=== PATIENT | female | born 1930 | race Caucasian/White ===

== ENCOUNTER 2021-05-26 21:00 | Inpatient (IN) | payer MEDICARE, OTHER ==
[~2021-05-26] VITALS: Ht 154.9 cm; Wt 52.6 kg
--- NOTE | 2021-05-26 21:00 | NUR ---
patient BIB [facility] from [facility]. Patient was becoming aggressive, hitting staff, and screaming at facility. Patient is calm and cooperative upon arrival to ER
[2021-05-26 21:39] LABS: CARBON DIOXIDE 29 mmol/L (21-32); CHLORIDE 101 mmol/L (98-107); CREATININE 0.9 mg/dL (0.6-1.3); GLUCOSE 163 mg/dL (74-106); POTASSIUM 4.5 mmol/L (3.5-5.1); UREA NITROGEN, BLOOD 34 mg/dL (7-18)
[2021-05-26 21:41] LABS: HEMATOCRIT 29.9 % (31.2-41.9); MEAN CORPUSCULAR HEMOGLOBIN 30.1 uug (24.7-32.8); MEAN CORPUSCULAR VOLUME 89.9 fL (75.5-95.3); PLATELET COUNT (AUTO) 230 K/uL (179-408)
[2021-05-26 21:44] LABS: ALANINE AMINOTRANSFERASE 26 U/L (14-59); ALKALINE PHOSPHATASE 52 U/L (50-136); ASPARTATE AMINOTRANSFERASE 13 U/L (15-37); BILIRUBIN,DIRECT 0.1 mg/dL (0.0-0.2); BILIRUBIN,TOTAL 0.3 mg/dL (0.2-1.0)
[2021-05-26] MEDS ORDERED: IV NS 1000 ML 1,000 ML IV ONE ×2 (22:00)
[2021-05-26 22:09] LABS: MAGNESIUM 2.1 mg/dL (1.8-2.4)
--- NOTE | 2021-05-26 22:31 | NUR ---
called payroll master Harman and both numbers are not working and was not able to leave a voice message. Also called payroll master Jessica no answer and was not able to leave voice message. Will attempt to call prefabricated houses trimmer
--- NOTE | 2021-05-26 22:39 | NUR ---
called pari mutuel ticket seller Meredith
--- NOTE | 2021-05-26 22:57 | NUR ---
[phone] - son Patient's son left and gave his phone number. Will update
[2021-05-26] MEDS ORDERED: QUET25TA PO (23:28)
[2021-05-26] MEDS ORDERED: LOSA50TA39 PO (23:33)
[2021-05-27] MEDS ORDERED: DOCU-141 PO (00:30)
[2021-05-27] MEDS ORDERED: CARV12.52 PO (00:30)
[2021-05-27] MEDS ORDERED: ACET-2154 PO (00:32)
[2021-05-27 00:44] LABS: *BILIRUBIN,URIN NEGATIVE (NEGATIVE); *BLOOD, URINE TRACE (NEGATIVE); *CLARITY,URINE CLEAR (CLEAR); *COLOR,URINE YELLOW (YELLOW); *KETONES,URINE NEGATIVE (NEGATIVE); *UROBILINOGEN,URINE 0.2 E.U./dl (NORMAL); LEUKOCYTE ESTERASE ,URINE TRACE (NEGATIVE); NITRITE, URINE NEGATIVE (NEGATIVE); UGLUCOSE NEGATIVE (NEGATIVE)
[2021-05-27 00:55] LABS: BACTERIA,URINE FEW /HPF (NONE SEEN); RBC,URINE 0-3 /HPF (0-3); SQUAMOUS EPITHELIAL CELL,UR FEW /HPF (NONE SEEN)
[2021-05-27] MEDS ORDERED: ESCI-9 PO (00:56)
[2021-05-27] MEDS ORDERED: LINA5TAB PO (00:56)
[2021-05-27] MEDS ORDERED: PYRI25TA3 PO (00:56)
[2021-05-27] MEDS ORDERED: LINA290C PO (00:56)
[2021-05-27] MEDS ORDERED: BISA10SU61 RC (00:59)
[2021-05-27] MEDS ORDERED: METF-494 PO (00:59)
[2021-05-27] MEDS ORDERED: PRAV20TA4 PO (00:59)
[2021-05-27] MEDS ORDERED: GABA-532 PO (00:59)
[2021-05-27] MEDS ORDERED: LACT10SO3 PO (00:59)
[2021-05-27] MEDS ORDERED: SUVO10TA PO (00:59)
--- NOTE | 2021-05-27 01:30 | NUR ---
tried calling [facility] to give report. They said call back after 30 mins
--- NOTE | 2021-05-27 02:23 | NUR ---
report given to Luis Daniel
--- NOTE | 2021-05-27 03:10 | NUR ---
Pt. admitted to [facility] under care of Dr. Maurer Belongs List completed
[2021-05-27] MEDS ORDERED: MAG HYDROX/AL HYDROX/SIMETH 30 ML LIQUID UDC PO PRN (03:45)
--- NOTE | 2021-05-27 05:35 | NUR ---
GPS: PT RECEIVED FROM ER, REPORTED BY ALEX LACY. PT CAME FROM [facility] AND ON 515 WITH PROBABLE CAUSE OF GRAVE DISABILITY AND DANGER TO OTHERS. PER 5150, PT WAS AGGRESSIVE TOWARDS STAFF AND HAVING BIZAARE BEHAVIOR, WAS HITTING STAFF AND RESIDENTS, YELLING AND SCREAMING AND NOT SLEEPING FOR FEW DAYS. UPON FACE TO FACE, PT WAS ALERT AND ORIENTED X2, CONFUSED AND SOMEWHAT PARANOID. ASSISTED TO THE BATHROOM. 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 PT FEELS ANXIOUS AT FIRST AND OFFERED MEDICATION BUT REFUSED. PT ABLE TO UNDERSTAND [place] AND ABLE TO MAKE NEEDS KNOWN. REFUSED SNACKS. REFUSED TO SIGN ALL PAPERS AND WOULD LIKE TO TAKE A REST. HANDED OUT PT RIGHT HANDBOOK AND FOLDER AND THE HOLD AND ADVISEMENT PAPER ENCLOSED. WILL NOTIFY DR PAYAN AND PT'S DAUGHTER IN THE MORNING.
[2021-05-27 07:30] VITALS: BP 139/56
[2021-05-27] MEDS: QUETIAPINE FUMARATE 25 MG TABLET PO SCH ×2 (09:27→17:08)
[2021-05-27] MEDS: SERTRALINE HCL 50 MG TABLET PO SCH (09:27)
[2021-05-27] MEDS: GABAPENTIN 100 MG CAPSULE PO SCH ×3 (09:27→17:07)
--- NOTE | 2021-05-27 11:56 | NUR ---
Patient is in her room sitting on her bed I introduce myself to her and asked if she she would like to join activities? pt stated " I am dizzy so I rather stay in my room" I offer her some water but she declined Pt was calm during our conversation, during assessment noted pt's left hand swollen due to mastectomy of left breast instruct staff not to take any v/s, blood draw on pt's left hand pt able to feed herself and needs stand by assist when going to the bathroom, Pt will be given a shower later today.
[2021-05-27] MEDS: CEphaleXIN 500 MG CAPSULE PO SCH ×2 (13:11→20:26)
[2021-05-27] MEDS ORDERED: ACETAMINOPHEN 325 MG TABLET-SA PATIENTS-PAIN ONLY PO PRN (14:30)
[2021-05-27] MEDS ORDERED: METF-440 PO (14:37)
--- NOTE | 2021-05-27 14:41 | NUR ---
GOLDIE Initial Discharge Note: Pt is an 89 year old admitted to [facility] on a 5150 hold from [facility] ([phone]) for a danger to others and gravely disabled adult. Mima (health director and admissions at the facility) stated that pt has a bed hold and is welcome back upon discharge. Pt's daughter, Nogc ([phone]) stated that pt will return to her current facility upon discharge. Ngoc stated her sister is the pt's DPOA and she will bring the paperwork to U. Ngoc and her sister will be involved. GOLDIE will continue to work with pt, family and MD to ensure a safe and proper discharge plan for the pt.
--- NOTE | 2021-05-27 14:46 | NUR ---
Firearms Report: Buttonholer completed and submitted a DOJ firearms report for 5150 a danger to others and grave disability certifications. A copy of report has been placed in patient chart.
[2021-05-27 15:40] VITALS: BP 110/50
[2021-05-27] MEDS: DOCUSATE SODIUM 100 MG CAPSULE PO SCH (17:07)
[2021-05-27] MEDS: METFORMIN HCL 500 MG TABLET PO SCH (17:44)
[2021-05-27] MEDS: CARVEDILOL 12.5 MG TABLET PO SCH (17:45)
[2021-05-27 20:11] VITALS: BP 90/55
[2021-05-27] MEDS: ATORVASTATIN 10 MG TABLET PO SCH (20:26)
[2021-05-28] MEDS: TEMAZEPAM 7.5 MG CAPSULE PO PRN (00:06)
--- NOTE | 2021-05-28 06:09 | NUR ---
NSG: Remain calm and cooperative with meds and care. slept 7.15 hrs through the night. ambulates with fww. no [id number] noted at this time. continue plan of care.
[2021-05-28] MEDS: METFORMIN HCL 500 MG TABLET PO SCH ×2 (08:35→17:05)
[2021-05-28] MEDS: SERTRALINE HCL 50 MG TABLET PO SCH (08:36)
[2021-05-28] MEDS: DOCUSATE SODIUM 100 MG CAPSULE PO SCH ×2 (08:39→16:49)
[2021-05-28] MEDS: CEphaleXIN 500 MG CAPSULE PO SCH ×2 (08:39→16:49)
[2021-05-28] MEDS: QUETIAPINE FUMARATE 25 MG TABLET PO SCH ×2 (08:39→16:49)
[2021-05-28] MEDS: GABAPENTIN 100 MG CAPSULE PO SCH ×3 (08:40→16:49)
[2021-05-28] MEDS: CARVEDILOL 12.5 MG TABLET PO SCH ×2 (08:45→17:06)
[2021-05-28] MEDS: LOSARTAN POTASSIUM 50 MG TABLET PO SCH (08:46)
[2021-05-28] MEDS: LINAGLIPTIN 5 MG TABLET PO SCH (08:48)
[2021-05-28] MEDS ORDERED: Linaclotide (Linzess) 290 MCG) PO SCH (09:00)
[2021-05-28 09:18] VITALS: BP 117/46
--- NOTE | 2021-05-28 10:18 | NUR ---
GPS: Nursing Notes: Request [facility]: Staff requested a 5250 certification review hearing through [facility] portal, a copy of 5250 delivered to patient, explained 5250, but she needs reinforcement with teaching, believes that the staff is trying to kill her, overly disruptive shouting, continue to monitor for safety, continue with treatment plan.
[2021-05-28] MEDS: LORAZEPAM 0.5 MG TABLET PO PRN ×2 (12:15→20:32)
[2021-05-28 16:04] VITALS: BP 100/36
--- NOTE | 2021-05-28 18:18 | NUR ---
Received Patient in room sleeping, no apparent distress noted. Greeted patient and was pleasant. Patient compliant with medication and diet. Patient agrees to shower. Patient tend to be angry d/t her hallucinations. Patient keeps on stating "I go to hell", "you go to hell". Fixated on counting people in her room and gets aggressive at times. Patient kept safe all the times. needs met and attended.
[2021-05-28 20:00] VITALS: BP 138/90
[2021-05-28] MEDS: ATORVASTATIN 10 MG TABLET PO SCH (20:32)
--- NOTE | 2021-05-28 20:36 | NUR ---
patient is crying loud stated i am sad. ativan 0.5 mg po given.
--- NOTE | 2021-05-28 21:36 | NUR ---
GPS: Remain calm and cooperative with meds and care. assisted with adl's. patient remain confused. resting on bed comfortably.
--- NOTE | 2021-05-29 06:34 | NUR ---
slept 6.45 hrs through the night.
[2021-05-29 07:30] VITALS: BP 104/62
[2021-05-29] MEDS: CARVEDILOL 12.5 MG TABLET PO SCH ×2 (08:00→16:16)
[2021-05-29] MEDS: LINAGLIPTIN 5 MG TABLET PO SCH (08:32)
[2021-05-29] MEDS: GABAPENTIN 100 MG CAPSULE PO SCH ×4 (08:32→16:16)
[2021-05-29] MEDS: DOCUSATE SODIUM 100 MG CAPSULE PO SCH ×3 (08:32→16:15)
[2021-05-29] MEDS: QUETIAPINE FUMARATE 25 MG TABLET PO SCH ×3 (08:32→16:16)
[2021-05-29] MEDS: CEphaleXIN 500 MG CAPSULE PO SCH ×3 (08:32→16:16)
[2021-05-29] MEDS: SERTRALINE HCL 50 MG TABLET PO SCH (08:33)
[2021-05-29] MEDS: LOSARTAN POTASSIUM 50 MG TABLET PO SCH (08:33)
[2021-05-29] MEDS: METFORMIN HCL 500 MG TABLET PO SCH ×2 (08:33→16:17)
[2021-05-29 15:14] VITALS: BP 159/49
--- NOTE | 2021-05-29 15:51 | NUR ---
patient is alert and oriented x3, paranoia and delusional refusing all medication ,refused all nursing care,supervision for restroom used. patient was void on the floor refused got help from nurses,patient able to ambulating to restroom and stay in toilet for over hour.will continue close monitoring.
[2021-05-29] MEDS: LORAZEPAM 0.5 MG TABLET PO PRN ×2 (17:26→23:25)
[2021-05-29 20:00] VITALS: BP 132/48
[2021-05-29] MEDS: ATORVASTATIN 10 MG TABLET PO SCH (21:16)
[2021-05-29] MEDS: TEMAZEPAM 7.5 MG CAPSULE PO PRN (21:17)
[2021-05-29] MEDS: MAGNESIUM HYDROXIDE 30 ML LIQUID UDC PO PRN (23:33)
[2021-05-30] MEDS: ACETAMINOPHEN 325 MG TABLET PO PRN (01:15)
--- NOTE | 2021-05-30 06:12 | NUR ---
Received, up in marek chair, confused, but compliant with care. PRN Restoril and Ativan were given at bedtime. She became more confused, as the night wore on, talking to self, and refusing to stay in bed, even after being assisted there several times. She did not sleep, all night. She c/o being constipated, so PRN Milk of Magnesia was given. As of this morning, there is still no result. Currently up in marek chair. No distress, noted.
[2021-05-30 07:30] VITALS: BP 166/59
[2021-05-30] MEDS: METFORMIN HCL 500 MG TABLET PO SCH ×2 (08:00→17:51)
[2021-05-30] MEDS: CARVEDILOL 12.5 MG TABLET PO SCH ×2 (08:00→17:50)
[2021-05-30] MEDS: CEphaleXIN 500 MG CAPSULE PO SCH ×2 (08:56→17:50)
[2021-05-30] MEDS: LOSARTAN POTASSIUM 50 MG TABLET PO SCH (08:56)
[2021-05-30] MEDS: DOCUSATE SODIUM 100 MG CAPSULE PO SCH ×2 (08:56→17:50)
[2021-05-30] MEDS: SERTRALINE HCL 50 MG TABLET PO SCH (08:57)
[2021-05-30] MEDS: QUETIAPINE FUMARATE 25 MG TABLET PO SCH ×2 (08:57→17:51)
[2021-05-30] MEDS: LINAGLIPTIN 5 MG TABLET PO SCH (08:57)
[2021-05-30] MEDS: GABAPENTIN 100 MG CAPSULE PO SCH ×3 (08:57→17:51)
[2021-05-30] MEDS ORDERED: OLANZAPINE 10 MG VIAL IM ONE (09:45)
--- NOTE | 2021-05-30 09:50 | NUR ---
Patient became agitated, aggressive, striking at staff, combative, threw medications at nurse. Dr. Cowan ordered Zyprexa 5 mg IM. Three people to administer medication, no force needed. Fall and safety precautions implemented.
--- NOTE | 2021-05-30 15:02 | NUR ---
Received patient awake in the hallway. A/O X 2 to person, place. Pt. is uncooperative, cursing, yelling, throwing food on the floor and at the nurse, and refusing medications, agitated, combative, striking at staff. Pt. ambulates with assistance. Continent of bladder and bowel. Reassurance given. Fall and safety precautions implemented.
[2021-05-30 15:13] VITALS: BP 127/44
--- NOTE | 2021-05-30 15:22 | NUR ---
GPS: Nursing Notes: Farsi Billing And Quality Technician For [facility]: Staff called [address] to request Farsi area development manager because patient is regressing to her confederated yakama language, spoke with [address] manager contact - Lauren , continue to monitor for safety, continue with treatment plan.
[2021-05-30] MEDS: LORAZEPAM 0.5 MG TABLET PO PRN ×2 (15:43→22:09)
--- NOTE | 2021-05-30 16:26 | NUR ---
GOLDIE Family Contact: GOLDIE spoke with Ngoc ([phone]) in person during visitation hours regarding pt's discharge plan. Ngoc delivered pt's DPOA paperwork to GOLDIE and GOLDIE placed a copy of the DPOA paperwork in the pt's chart. Ngoc was agreeable to SNF options recommended by MD and GOLDIE upon discharge. GOLDIE will continue to work with pt, family and MD to ensure a safe and proper discharge plan. GOLDIE informed Ngoc she will update family with discharge updates provided by MD as needed. Pt's family is aware and agreeable with the discharge plan.
[2021-05-30] MEDS: GLUCERNA SHAKE VANILLA 237 ML CAN PO SCH (17:52)
[2021-05-30] MEDS: ATORVASTATIN 10 MG TABLET PO SCH (20:04)
[2021-05-30 20:11] VITALS: BP 135/58
[2021-05-30] MEDS: TEMAZEPAM 7.5 MG CAPSULE PO PRN (20:13)
[2021-05-31] MEDS: MAGNESIUM HYDROXIDE 30 ML LIQUID UDC PO PRN (06:52)
[2021-05-31 07:30] VITALS: BP 133/49
[2021-05-31] MEDS: SERTRALINE HCL 50 MG TABLET PO SCH (08:25)
[2021-05-31] MEDS: CEphaleXIN 500 MG CAPSULE PO SCH ×2 (08:25→17:23)
[2021-05-31] MEDS: QUETIAPINE FUMARATE 25 MG TABLET PO SCH ×2 (08:25→17:23)
[2021-05-31] MEDS: LOSARTAN POTASSIUM 50 MG TABLET PO SCH (08:31)
[2021-05-31] MEDS: CARVEDILOL 12.5 MG TABLET PO SCH ×2 (08:31→17:23)
[2021-05-31] MEDS: METFORMIN HCL 500 MG TABLET PO SCH ×2 (08:32→17:23)
[2021-05-31] MEDS: GABAPENTIN 100 MG CAPSULE PO SCH ×3 (08:32→17:23)
[2021-05-31] MEDS: DOCUSATE SODIUM 100 MG CAPSULE PO SCH ×2 (08:32→17:23)
[2021-05-31] MEDS: LINAGLIPTIN 5 MG TABLET PO SCH (09:00)
[2021-05-31] MEDS: GLUCERNA SHAKE VANILLA 237 ML CAN PO SCH ×2 (09:00→17:23)
--- NOTE | 2021-05-31 13:07 | NUR ---
GPS: PT ASSISTED WITH TOILETING AND PT NOTED CONSTIPATED. PT WAS GIVEN MILK OF MAGNESIA THIS MORNING. PT GETS AGITATED AND SCREAMS AND YELLS WHILE HELPING PT TO THE BATHROOM. WILL ENCOURAGE PRUNE JUICE AND WILL INTRODUCE BISACODYL SUPP.
[2021-05-31] MEDS: BISACODYL 10 MG SUPP.RECT RC PRN (14:15)
[2021-05-31] MEDS ORDERED: FLEET ENEMA 133 ML BOTTLE RC ONE (14:15)
[2021-05-31 16:05] VITALS: BP 125/50
--- NOTE | 2021-05-31 17:15 | NUR ---
GPS: ASSISTED PT TO THE BATHROOM REQUESTED. PT WAS ABLE TO HAVE A BOWEL MOVEMENT X-LARGE. PER PT IT WAS SINCE 3 WEEKS THE LAST BOWEL SHE HAD AND NOW VERY RELIEF. PT DENIES ANY PAIN OR DISCOMFORT. WILL MONITOR PT. Addendum: 05/31/21 at 1805 by ANANYA DE JESUS RN FLEET ENEMA ONE TIME DOSE CANCELLED AFTER PT HAD AN XL BOWEL MOVEMENT.
[2021-05-31 20:00] VITALS: BP 104/58
[2021-05-31] MEDS: ATORVASTATIN 10 MG TABLET PO SCH (22:13)
--- NOTE | 2021-06-01 05:37 | NUR ---
Received to care, asleep, in bed. No PRN medications given. Assisted to the bathroom a few times during the night. Continues to sleep. No distress, noted.
[2021-06-01 07:30] VITALS: BP 128/50
[2021-06-01] MEDS: LINZESS 290 MCG PO SCH (07:30)
[2021-06-01] MEDS: METFORMIN HCL 500 MG TABLET PO SCH ×2 (08:00→17:47)
[2021-06-01] MEDS: CARVEDILOL 12.5 MG TABLET PO SCH ×2 (08:00→17:47)
[2021-06-01] MEDS: LINAGLIPTIN 5 MG TABLET PO SCH (09:00)
[2021-06-01] MEDS: GABAPENTIN 100 MG CAPSULE PO SCH ×3 (09:00→17:46)
[2021-06-01] MEDS: SERTRALINE HCL 50 MG TABLET PO SCH (09:00)
[2021-06-01] MEDS: CEphaleXIN 500 MG CAPSULE PO SCH (09:00)
[2021-06-01] MEDS: GLUCERNA SHAKE VANILLA 237 ML CAN PO SCH ×2 (09:00→17:55)
[2021-06-01] MEDS: QUETIAPINE FUMARATE 25 MG TABLET PO SCH ×2 (09:00→17:47)
[2021-06-01] MEDS: LOSARTAN POTASSIUM 50 MG TABLET PO SCH (09:00)
[2021-06-01] MEDS: DOCUSATE SODIUM 100 MG CAPSULE PO SCH ×2 (09:00→17:47)
--- NOTE | 2021-06-01 11:35 | NUR ---
PT ON CHAIR REFUSED BREAKFAST AND MEDS. PT WAS PARANOID AND NON-COMPLIANT. ENCOURAGED TO TAKE THE MEDS AND EXPLAINED THE RISK AND BENEFITS. PT WAS SEEN BY THE PSYCHIATRIST BUT PT WAS RESISTIVE AND ACTED SLEEPING AND NOT RESPONDING.
[2021-06-01] MEDS: LORAZEPAM 0.5 MG TABLET PO PRN (15:09)
--- NOTE | 2021-06-01 15:09 | NUR ---
GPS: PT IS VERY ANXIOUS, AGITATED AND SCREAMING ANG YELLING. PT WAS ASKED IF SHE LIKES TO TAKE ATIVAN TO CALM HER DOWN AND AGREED TO IT. UPON GIVING THE MEDICATION, PT FAKED TO TAKE THE MEDICATION BY HIDING THE MEDICATION IN BETWEEN FINGER AND DRANK WATER SAYING, "I TOOK IT" BUT NOTICED THAT PT WAS TRYING TO HIDE THE ATIVAN. ASKED TO GIVE BACK THE ATIVAN BUT PT HOLDING IT TIGHT. PT TALKING TO SELF BEING LOUD AT THE HALLWAY, DISRUPTING OTHER PT. WILL REPORT TO .
[2021-06-01] MEDS ORDERED: OLANZAPINE 10 MG VIAL IM ONE (15:45)
[2021-06-01 16:00] VITALS: BP 143/99
--- NOTE | 2021-06-01 16:00 | NUR ---
GPS: REPORTED TO PSYCHIATRIST ABOUT THE PT BEHAVIOR AND MD ORDERED ZYPREXA 5MG IM. ADMINISTERED TO PT AND TOLERATED WELL. SAFETY PLAN MADE AND PT FAMILY NOTIFIED. WILL CONTINUE TO MONITOR PT
[2021-06-01 20:00] VITALS: BP 100/50
[2021-06-01] MEDS: ATORVASTATIN 10 MG TABLET PO SCH (20:49)
[2021-06-01] MEDS ORDERED: QUETIAPINE FUMARATE 25 MG TABLET PO SCH (21:00)
--- NOTE | 2021-06-02 06:16 | NUR ---
GPS: Remain calm and cooperative with meds and care. assisted with adl's. slept 9 hrs through the night.
[2021-06-02] MEDS: LINZESS 290 MCG PO SCH (06:48)
[2021-06-02 08:00] VITALS: BP 118/52
[2021-06-02] MEDS: CARVEDILOL 12.5 MG TABLET PO SCH ×2 (08:00→18:00)
[2021-06-02] MEDS: METFORMIN HCL 500 MG TABLET PO SCH ×2 (08:00→18:00)
[2021-06-02] MEDS: LOSARTAN POTASSIUM 50 MG TABLET PO SCH (09:00)
[2021-06-02] MEDS: QUETIAPINE FUMARATE 25 MG TABLET PO SCH (09:00)
[2021-06-02] MEDS: SERTRALINE HCL 50 MG TABLET PO SCH (09:00)
[2021-06-02] MEDS: GLUCERNA SHAKE VANILLA 237 ML CAN PO SCH ×2 (09:00→18:12)
[2021-06-02] MEDS: DOCUSATE SODIUM 100 MG CAPSULE PO SCH ×2 (09:00→17:00)
[2021-06-02] MEDS: LINAGLIPTIN 5 MG TABLET PO SCH (09:00)
[2021-06-02] MEDS: GABAPENTIN 100 MG CAPSULE PO SCH ×2 (09:00→18:12)
--- NOTE | 2021-06-02 10:55 | NUR ---
GPS: PT REMAINS TO BE PARANOID WHEN IT COMES TO TAKING MEDICATIONS. AM MEDS WERE REFUSED EVEN EXPLAINING THE RISK AND BENEFITS OF TAKING THE MEDS. PT WITH EPISODES OF CRYING SPELLS, BIZARRE BEHAVIOR, STATING "YOU WILL GO TO HELL", "SHE IS CRAZY (REFERRING TO HER ROOMMATE)". PT BEATING THE TABLE WITH SPOON MAKING LOUD SOUND AND VERY ARGUMENTATIVE, DISTURBING ROOM MATE. OFFERED MEDICATION FOR ANXIETY BUT PT REFUSED.
--- NOTE | 2021-06-02 14:33 | NUR ---
GPS: ESPINOZA BORDEN FILED TO THE SUPERIOR COURT HEARING BY PSYCHIATRIST. PT GIVEN A COPY OF THE NOTICE FAXED TO THE COURT. DAUGHTER NOTIFIED.
[2021-06-02] MEDS: OLANZAPINE 2.5 MG TABLET PO SCH ×2 (14:44→20:26)
--- NOTE | 2021-06-02 14:46 | NUR ---
GPS: PT ENCOURAGED TO TAKE ZYPREXA 2.5MG PO, PT TOLERATED WELL AFTER CONVINCING PT. PT STATED "YOU'RE GOING TO HELL, YOU'RE GOING TO HEAVEN". TALKING TO SELF AND RESPONDING TO INTERNAL STIMULI. PT BEING LOUD AND GETTING FIXATED TO HEAVEN AND HELL AND OTHER PT GET AFFECTED. REDIRECTED PT
[2021-06-02 16:00] VITALS: BP 103/45
[2021-06-02] MEDS: LORAZEPAM 0.5 MG TABLET PO PRN (18:12)
--- NOTE | 2021-06-02 18:13 | NUR ---
GPS: PT WAS ABLE TO TAKE THE GABAPENTIN 100MG 3 CAPSULES AND ATIVAN PO. PT NOTED ANXIOUS AND AGITATED WHEN PT DAUGHTER CAME AND RESPONDING WITH INTERNAL STIMULI. PT TRYING TO GRAB STAFF IN PRESENCE OF DAUGHTER. WILL CONTINUE WITH TREATMENT PLAN.
[2021-06-02 20:06] VITALS: BP 143/48
[2021-06-02] MEDS: ATORVASTATIN 10 MG TABLET PO SCH (20:26)
[2021-06-02] MEDS: TEMAZEPAM 7.5 MG CAPSULE PO PRN (21:48)
[2021-06-03] MEDS: LORAZEPAM 0.5 MG TABLET PO PRN ×2 (01:10→21:13)
--- NOTE | 2021-06-03 04:25 | NUR ---
GPS: PT WAS GIVEN TEMAZEPAM AND ATIVAN PRN AND INEFFECTIVE. PT WAS AWAKE ALMOST THE WHOLE NIGHT. PT TALKING TO SELF AND RESPONDING TO INTERNAL STIMULI. PT RESISTIVE TO CARE. UPON ASSISTING TO BATHROOM, PT PULLED ONE OF STAFF'S HAIR. ENCOURAGED PT TO BE PLACE IN BED TO SLEEP BUT REFUSED GOING TO BED AND STAYED ON CHAIR.
[2021-06-03 07:30] VITALS: BP 155/55
[2021-06-03] MEDS: LINZESS 290 MCG PO SCH (07:30)
[2021-06-03] MEDS: METFORMIN HCL 500 MG TABLET PO SCH ×2 (08:00→17:03)
[2021-06-03] MEDS: CARVEDILOL 12.5 MG TABLET PO SCH ×2 (08:00→17:03)
[2021-06-03] MEDS: OLANZAPINE 2.5 MG TABLET PO SCH ×3 (08:29→16:48)
[2021-06-03] MEDS: GABAPENTIN 100 MG CAPSULE PO SCH (08:38)
[2021-06-03] MEDS: GLUCERNA SHAKE VANILLA 237 ML CAN PO SCH ×2 (08:38→16:47)
[2021-06-03] MEDS: DOCUSATE SODIUM 100 MG CAPSULE PO SCH ×2 (08:38→16:47)
[2021-06-03] MEDS: LOSARTAN POTASSIUM 50 MG TABLET PO SCH (08:38)
[2021-06-03] MEDS: LINAGLIPTIN 5 MG TABLET PO SCH (08:39)
[2021-06-03] MEDS: DIVALPROEX SPRINKLE 125 MG CAP.SPRINK PO SCH ×3 (09:30→16:47)
[2021-06-03] MEDS ORDERED: OLANZAPINE 10 MG VIAL IM ONE (12:45)
--- NOTE | 2021-06-03 12:45 | NUR ---
patient is yelling constantly, banging on table, loud very disruptive, agitated, nonpharmacological interventions tried, daughter next to her, but could not calm her down, noneffective, called dr horne, with order to give zyprexa 5mg IM, order noted, safety precautions are in place.
[2021-06-03] MEDS ORDERED: GABAPENTIN 100 MG CAPSULE PO SCH (13:00)
--- NOTE | 2021-06-03 14:24 | NUR ---
patient is calm at this time, siting in chair, no distress noted, respirations are 16.
--- NOTE | 2021-06-03 14:29 | NUR ---
GOLDIE Discharge Update: GOLDIE contacted Mima (director of community center and admissions at [facility] [phone]) [address], [place] [address] who stated that pt continues to have a bed hold and is welcome back upon discharge. Mima stated to give a call back with discharge date prior to discharge to prepare.
[2021-06-03 16:37] VITALS: BP 142/57
--- NOTE | 2021-06-03 17:11 | NUR ---
patient continue to refuse all her medications, patient denied any suicidal thoughts, no acute distress noted, sitting up in chair, tolerated meals well. continue to monitor for safely checks per unit protocol
--- NOTE | 2021-06-03 18:35 | NUR ---
patient daughter in law and son came to visit, patient daughter in law and son offered assistant professor of english to give patient medications, patient's daughter in law hid the medication in the food and assisted with administering following medications Zyprexa 2.5mg, Depakote sprinkles 125mg, metformin 500mg, and Coreg 12.5mg. patient is in bed, clean and dry, safety precautions are in place, monitor per unit protocol, no acute distress noted.
[2021-06-03] MEDS: ATORVASTATIN 10 MG TABLET PO SCH (21:13)
[2021-06-03 22:26] VITALS: BP 121/49
--- NOTE | 2021-06-03 22:38 | NUR ---
GPS: PT RECEIVED ON BED, AWAKE,TALKING TO SELF. PT TRYING TO GET OUT OF BED, ASSISTED PT TO ELVER-CHAIR FOR SAFETY. PT A BIT ANXIOUS, GIVEN ATIVAN PO AND TOLERATED WELL.
[2021-06-04] MEDS: TEMAZEPAM 7.5 MG CAPSULE PO PRN ×2 (01:33→21:24)
[2021-06-04] MEDS: ACETAMINOPHEN 325 MG TABLET PO PRN ×2 (01:33→21:24)
[2021-06-04] MEDS: CARVEDILOL 12.5 MG TABLET PO SCH ×2 (08:00→17:46)
[2021-06-04] MEDS: METFORMIN HCL 500 MG TABLET PO SCH ×2 (09:04→17:38)
[2021-06-04] MEDS: LINAGLIPTIN 5 MG TABLET PO SCH (09:04)
[2021-06-04] MEDS: DIVALPROEX SPRINKLE 125 MG CAP.SPRINK PO SCH ×3 (09:04→17:38)
[2021-06-04] MEDS: LOSARTAN POTASSIUM 50 MG TABLET PO SCH (09:05)
[2021-06-04] MEDS: OLANZAPINE 2.5 MG TABLET PO SCH ×3 (09:05→17:38)
[2021-06-04] MEDS: DOCUSATE SODIUM 100 MG CAPSULE PO SCH ×2 (09:08→17:38)
[2021-06-04] MEDS: LINZESS 290 MCG PO SCH (09:09)
[2021-06-04] MEDS: GLUCERNA SHAKE VANILLA 237 ML CAN PO SCH ×2 (09:10→17:39)
[2021-06-04 20:37] VITALS: BP 139/59
[2021-06-04] MEDS: ATORVASTATIN 10 MG TABLET PO SCH (20:37)
[2021-06-04] MEDS: LORAZEPAM 0.5 MG TABLET PO PRN (21:24)
--- NOTE | 2021-06-04 21:37 | NUR ---
AAOx2-3 with some periods of confusion at times. Patient talking incoherently. Patient getting very restless and with some periods of agitation. Ativan given as ordered, took with no difficulty. Needs attended. VSS. Will monitor for any further behavioral activity. Patient a fall risk.
[2021-06-05 07:30] VITALS: BP 151/59
[2021-06-05 07:34] LABS: HEMATOCRIT 32.8 % (31.2-41.9); MEAN CORPUSCULAR HEMOGLOBIN 29.5 uug (24.7-32.8); MEAN CORPUSCULAR VOLUME 90.1 fL (75.5-95.3); PLATELET COUNT (AUTO) 271 K/uL (179-408)
[2021-06-05 07:54] LABS: BILIRUBIN,TOTAL 0.3 mg/dL (0.2-1.0); CREATININE 0.6 mg/dL (0.6-1.3); POTASSIUM 4.4 mmol/L (3.5-5.1)
[2021-06-05] MEDS: DOCUSATE SODIUM 100 MG CAPSULE PO SCH ×2 (08:36→17:01)
[2021-06-05] MEDS: LINAGLIPTIN 5 MG TABLET PO SCH (08:36)
[2021-06-05] MEDS: DIVALPROEX SPRINKLE 125 MG CAP.SPRINK PO SCH ×4 (08:36→20:18)
[2021-06-05] MEDS: METFORMIN HCL 500 MG TABLET PO SCH ×2 (08:36→17:01)
[2021-06-05] MEDS: OLANZAPINE 2.5 MG TABLET PO SCH ×3 (08:36→17:01)
[2021-06-05] MEDS: LOSARTAN POTASSIUM 50 MG TABLET PO SCH (08:37)
[2021-06-05] MEDS: GLUCERNA SHAKE VANILLA 237 ML CAN PO SCH ×2 (08:37→17:03)
[2021-06-05] MEDS: LINZESS 290 MCG PO SCH (08:38)
[2021-06-05] MEDS: CARVEDILOL 12.5 MG TABLET PO SCH ×2 (08:41→17:02)
--- NOTE | 2021-06-05 09:00 | NUR ---
RECEIVED PATIENT ON THE ELVER CHAIR AWAKE ALERT VERBALLY RESPONSIVE WITH EPISODES OF BEING CONFUSED AND YELLING OUT SHE IS COMPLIANT WITH HER MEDICATIONS EASILY REDIRECTABLE AT THIS TIME WILL CCONTINUE TO OBSERVE.
[2021-06-05 16:00] VITALS: BP 146/63
--- NOTE | 2021-06-05 17:58 | NUR ---
PATIENTS DAUGHTERS HERE VISITING AND INITIALLY PATIENT WAS VERY CONFUSED AND REFUSING TO VISIT WITH THEM BUT AFTER A WHILE SHE CALMED DOWN AND IS SEEN WALKING WITH HER DAUGHTERS WITH THE FRONT WHEEL WALKER WITH STEADY GAIT COMFORTABLE WILL CONTINUE TO PROVIDE SAFE AND THERAPEUTIC ENVIRONMENT AT ALL TIMES.
[2021-06-05 20:00] VITALS: BP 131/48
[2021-06-05] MEDS: ATORVASTATIN 10 MG TABLET PO SCH (20:18)
[2021-06-05] MEDS: TEMAZEPAM 7.5 MG CAPSULE PO PRN (20:19)
[2021-06-06] MEDS: LINZESS 290 MCG PO SCH (06:00)
--- NOTE | 2021-06-06 06:05 | NUR ---
Patient slept 9.5 hours. No complaint presented all night. Compliant to plan of care. No significant event reported throughout the shift.
[2021-06-06 08:00] VITALS: BP 136/49
[2021-06-06] MEDS: CARVEDILOL 12.5 MG TABLET PO SCH ×3 (08:00→17:25)
[2021-06-06] MEDS: LINAGLIPTIN 5 MG TABLET PO SCH (09:04)
[2021-06-06] MEDS: DIVALPROEX SPRINKLE 125 MG CAP.SPRINK PO SCH ×3 (09:05→17:24)
[2021-06-06] MEDS: DOCUSATE SODIUM 100 MG CAPSULE PO SCH ×2 (09:05→17:24)
[2021-06-06] MEDS: LOSARTAN POTASSIUM 50 MG TABLET PO SCH (09:05)
[2021-06-06] MEDS: OLANZAPINE 2.5 MG TABLET PO SCH ×3 (09:05→17:24)
[2021-06-06] MEDS: METFORMIN HCL 500 MG TABLET PO SCH ×2 (09:05→17:24)
[2021-06-06] MEDS: GLUCERNA SHAKE VANILLA 237 ML CAN PO SCH ×2 (09:18→17:25)
--- NOTE | 2021-06-06 11:25 | NUR ---
Court Decline Riermelinda hearing ,Dr. Maurer made aware.
--- NOTE | 2021-06-06 14:08 | NUR ---
Received patient sleeping in her room. A/O X 2 to person, place. Pt. is labile, confused, anxious, and combative at times. Compliant with medications at this time. Pt. ambulates with assistance, unsteady gait. Continent/incontinent of bladder and bowel. Denies SI/HI AH/VH. Denies pain. Denies SOB. Active listening provided. Fall and safety precautions implemented.
[2021-06-06] MEDS: LORAZEPAM 0.5 MG TABLET PO PRN (16:10)
--- NOTE | 2021-06-06 16:12 | NUR ---
Ativan 0.5 mg is given at 16:11 for anxiety and agitation, will be monitored for effectiveness.
[2021-06-06 16:41] VITALS: BP 107/55
[2021-06-06] MEDS: ATORVASTATIN 10 MG TABLET PO SCH (20:20)
[2021-06-06] MEDS: MAGNESIUM HYDROXIDE 30 ML LIQUID UDC PO PRN (20:25)
[2021-06-06 20:46] VITALS: BP 130/80
[2021-06-07] MEDS: BISACODYL 10 MG SUPP.RECT RC PRN (00:03)
--- NOTE | 2021-06-07 05:31 | NUR ---
[facility] A&0x1. Patient noted with confusion with episode of yelling. Patient compliant with medications. Patient given MOM and Dulcolax supp prn, effective as patient had BM 2x that is large and form. Patient slept most of the night. Safety strategies in place.
[2021-06-07 08:00] VITALS: BP 124/50
[2021-06-07] MEDS: LINZESS 290 MCG PO SCH (10:21)
[2021-06-07] MEDS: DIVALPROEX SPRINKLE 125 MG CAP.SPRINK PO SCH ×3 (10:21→17:28)
[2021-06-07] MEDS: DOCUSATE SODIUM 100 MG CAPSULE PO SCH ×2 (10:21→17:27)
[2021-06-07] MEDS: LINAGLIPTIN 5 MG TABLET PO SCH (10:22)
[2021-06-07] MEDS: LOSARTAN POTASSIUM 50 MG TABLET PO SCH (10:22)
[2021-06-07] MEDS: CARVEDILOL 12.5 MG TABLET PO SCH ×2 (10:22→17:28)
[2021-06-07] MEDS: METFORMIN HCL 500 MG TABLET PO SCH ×2 (10:23→17:28)
[2021-06-07] MEDS: OLANZAPINE 2.5 MG TABLET PO SCH ×3 (10:23→17:27)
[2021-06-07] MEDS: GLUCERNA SHAKE VANILLA 237 ML CAN PO SCH ×2 (10:24→17:00)
--- NOTE | 2021-06-07 12:06 | NUR ---
SW Discharge Update: SW spoke with [facility] regarding pt's discharge return this week to reconfirm. Pt also spoke with pt's daughter, Ngoc ([phone]) who is agreeable with this discharge plan.
[2021-06-07] MEDS: LORAZEPAM 0.5 MG TABLET PO PRN (14:27)
--- NOTE | 2021-06-07 14:37 | NUR ---
Patient became anxious, agitated, stating that everybody is going to hell. Ativan 0.5 mg was given at 14:36, will be monitored for effectiveness.
--- NOTE | 2021-06-07 15:42 | NUR ---
Received patient sleeping in her room. A/O X 2 to person, place. Pt. is silverware cleaner, hyperverbal, confused, disoriented, anxious at times, disorganized, argumentative. Compliant with medications with lots of prompts. Ambulates with assistance. Denies SI/HI AH/VH. Pt. is encourage to verbalize concerns. Fall and safety precautions implemented.
[2021-06-07 16:31] VITALS: BP 120/48
[2021-06-07 19:58] VITALS: BP 105/49
[2021-06-07] MEDS: ATORVASTATIN 10 MG TABLET PO SCH (21:33)
[2021-06-08 07:30] VITALS: BP 159/44
[2021-06-08] MEDS: LINZESS 290 MCG PO SCH (08:24)
[2021-06-08] MEDS: OLANZAPINE 2.5 MG TABLET PO SCH ×3 (08:24→16:54)
[2021-06-08] MEDS: LINAGLIPTIN 5 MG TABLET PO SCH (08:24)
[2021-06-08] MEDS: DIVALPROEX SPRINKLE 125 MG CAP.SPRINK PO SCH ×3 (08:24→16:54)
[2021-06-08] MEDS: CARVEDILOL 12.5 MG TABLET PO SCH ×2 (08:25→17:04)
[2021-06-08] MEDS: DOCUSATE SODIUM 100 MG CAPSULE PO SCH ×2 (08:26→16:55)
[2021-06-08] MEDS: LOSARTAN POTASSIUM 50 MG TABLET PO SCH (08:26)
[2021-06-08] MEDS: METFORMIN HCL 500 MG TABLET PO SCH ×2 (08:26→17:05)
[2021-06-08] MEDS: GLUCERNA SHAKE VANILLA 237 ML CAN PO SCH ×2 (08:27→16:57)
--- NOTE | 2021-06-08 14:16 | NUR ---
Received patient sleeping in her room. A/O X 2 to person, place. Pt. is labile, suspicious with medications, argumentative, paranoid and delusional "You're trying to kill me with those pills", hyperverbal, sociable, agitated and anxious at times. Pt. ambulates with assistance of 1 person. Requires more than minimal assistance with ADL. Pt. is encourage to verbalize concerns. Fall and safety precautions implemented.
[2021-06-08] MEDS: LORAZEPAM 0.5 MG TABLET PO PRN ×2 (14:48→21:18)
--- NOTE | 2021-06-08 14:48 | NUR ---
Patient became agitated, anxious, hyperverbal, yelling at staff. Ativan 0.5 mg was given at 14:48, will be monitored for effectiveness.
[2021-06-08 16:00] VITALS: BP 144/60
[2021-06-08 20:00] VITALS: BP 127/77
[2021-06-08] MEDS: ATORVASTATIN 10 MG TABLET PO SCH (21:17)
[2021-06-09 07:30] VITALS: BP 139/48
[2021-06-09] MEDS: DOCUSATE SODIUM 100 MG CAPSULE PO SCH ×2 (09:00→16:33)
[2021-06-09] MEDS: GLUCERNA SHAKE VANILLA 237 ML CAN PO SCH ×2 (09:00→16:38)
[2021-06-09] MEDS: LINZESS 290 MCG PO SCH (09:32)
--- NOTE | 2021-06-09 10:30 | NUR ---
Gps/Personal Insurance Advisor- Slept till 1000 am, oob to chair P.T. assisting. Stayed up in her marek-chair , had late breakfast , routine am meds. administered late, had been compliant with meds. Ambulated with front wheel walker. Calm, interacting fairly well with staff .
[2021-06-09] MEDS: DIVALPROEX SPRINKLE 125 MG CAP.SPRINK PO SCH ×3 (11:18→16:33)
[2021-06-09] MEDS: LINAGLIPTIN 5 MG TABLET PO SCH (11:18)
[2021-06-09] MEDS: METFORMIN HCL 500 MG TABLET PO SCH ×2 (11:18→17:23)
[2021-06-09] MEDS: CARVEDILOL 12.5 MG TABLET PO SCH ×2 (11:19→17:23)
[2021-06-09] MEDS: OLANZAPINE 2.5 MG TABLET PO SCH ×3 (11:19→16:41)
[2021-06-09] MEDS: LOSARTAN POTASSIUM 50 MG TABLET PO SCH (11:20)
--- NOTE | 2021-06-09 15:07 | NUR ---
GOLDIE SNF Referral: GOLDIE sent clinicals to [facility] to Astrid romo ([phone], [phone]) for placement option. GOLDIE faxed H & P, progress notes, and medication list.
--- NOTE | 2021-06-09 15:44 | NUR ---
GOLDIE SNF Contact: GOLDIE received a call from [employer] ([phone]) from [facility] and stated pt is accepted.
--- NOTE | 2021-06-09 15:47 | NUR ---
Social Work Discharge Update Patient was accepted at [facility], [id number] [place] [address] ). log raft worker spoke with daughter who is open to this facility but wants to visit tomorrow am ( 06/10/21). [facility]. will not accept patient back to prior aggressive behavior towards other residents. Dr Maurer was made aware of discharge plan.
[2021-06-09] MEDS: BISACODYL 10 MG SUPP.RECT RC PRN (16:30)
[2021-06-09 16:48] VITALS: BP 137/57
[2021-06-09 20:01] VITALS: BP 134/53
[2021-06-09] MEDS: ATORVASTATIN 10 MG TABLET PO SCH (21:25)
[2021-06-10 07:30] VITALS: BP 138/51
[2021-06-10] MEDS: OLANZAPINE 2.5 MG TABLET PO SCH ×3 (08:27→16:53)
[2021-06-10] MEDS: METFORMIN HCL 500 MG TABLET PO SCH ×2 (08:27→18:13)
[2021-06-10] MEDS: CARVEDILOL 12.5 MG TABLET PO SCH ×2 (08:27→18:13)
[2021-06-10 08:28] LABS: HEMATOCRIT 32.6 % (31.2-41.9); MEAN CORPUSCULAR HEMOGLOBIN 29.9 uug (24.7-32.8); MEAN CORPUSCULAR VOLUME 87.9 fL (75.5-95.3); PLATELET COUNT (AUTO) 242 K/uL (179-408)
[2021-06-10] MEDS: LINZESS 290 MCG PO SCH (08:30)
[2021-06-10] MEDS: DIVALPROEX SPRINKLE 125 MG CAP.SPRINK PO SCH ×3 (08:31→16:53)
[2021-06-10] MEDS: LOSARTAN POTASSIUM 50 MG TABLET PO SCH (08:31)
[2021-06-10] MEDS: LINAGLIPTIN 5 MG TABLET PO SCH (08:32)
[2021-06-10 08:33] LABS: CARBON DIOXIDE 31 mmol/L (21-32); CHLORIDE 96 mmol/L (98-107); CREATININE 0.5 mg/dL (0.6-1.3); GLUCOSE 124 mg/dL (74-106); POTASSIUM 3.9 mmol/L (3.5-5.1); UREA NITROGEN, BLOOD 15 mg/dL (7-18)
[2021-06-10 08:34] LABS: ALANINE AMINOTRANSFERASE 27 U/L (14-59); ALKALINE PHOSPHATASE 58 U/L (50-136); ASPARTATE AMINOTRANSFERASE 18 U/L (15-37); BILIRUBIN,TOTAL 0.5 mg/dL (0.2-1.0); TOTAL PROTEIN, SERUM 7.3 g/dL (6.4-8.2)
[2021-06-10] MEDS: DOCUSATE SODIUM 100 MG CAPSULE PO SCH ×2 (08:34→16:54)
[2021-06-10] MEDS: GLUCERNA SHAKE VANILLA 237 ML CAN PO SCH ×2 (09:44→17:00)
--- NOTE | 2021-06-10 11:25 | NUR ---
GOLDIE Family Contact: SW attempted to contact pt's daughter Ngoc ([phone]) to discuss if she had toured [facility]. She was unavailable and this principal technical writer left a voicemail.
[2021-06-10 12:16] LABS: VALPROIC ACID 73 ug/mL (50-100)
--- NOTE | 2021-06-10 12:19 | NUR ---
Social work Discharge Plan Update Spoke with daughter, Annalise ([phone]). She rejected [facility] and said " this is not suitable for my mother". Now she is looking into assisted living facilities and working with a placement agent. Advised her that Dr Maurer felt her mother needs a locked SNF but she is not agreeable at this time.She is working with a placement agent, Kd, now. Social work will follow up re discharge plan. Dr Maurer was notified.
--- NOTE | 2021-06-10 12:37 | NUR ---
GOLDIE Family Contact: GOLDIE spoke with patient's daughter Ngoc ([phone]) who stated that she has toured [facility] and stated that it is not suitable for pt. She reported if this speech writer can provide other options. GOLDIE stated this speech writer will fax pt's clinicals to [facility] and [facility] and in the meantime she can research on these facilities. She did express for the terminal make up operator she would want her mother to be placed at an assisted living. She reported that she is working with Kd who is helping to find a place. She reported that she needs some time to tour facilities.
--- NOTE | 2021-06-10 12:39 | NUR ---
SNF Referral: GOLDIE sent clinicals to [facility], Antonia gray ([phone]) for placement option. SW sent H & P, progress notes, and medication list. GOLDIE sent clinicals to [facility], Halley isaac ([phone]) for placement option. SW sent H & P, progress notes, and medication list.
--- NOTE | 2021-06-10 13:33 | NUR ---
SNF Contact: SW spoke with [facility], Antonia gray ([phone]) who stated pt is accepted.
--- NOTE | 2021-06-10 13:34 | NUR ---
GOLDIE Family Contact: GOLDIE spoke with patient's daughter Ngoc ([phone]) and notified that pt is accepted at [facility]. GOLDIE gave information and she will tour the facility.
[2021-06-10 15:53] VITALS: BP 147/53
[2021-06-10] MEDS: ATORVASTATIN 10 MG TABLET PO SCH (20:26)
[2021-06-10 20:30] VITALS: BP 139/52
[2021-06-11 08:14] VITALS: BP 159/59
[2021-06-11] MEDS: OLANZAPINE 2.5 MG TABLET PO SCH ×3 (08:30→17:08)
[2021-06-11] MEDS: LINAGLIPTIN 5 MG TABLET PO SCH (08:30)
[2021-06-11] MEDS: LINZESS 290 MCG PO SCH (08:30)
[2021-06-11] MEDS: DOCUSATE SODIUM 100 MG CAPSULE PO SCH ×2 (08:30→17:09)
[2021-06-11] MEDS: LOSARTAN POTASSIUM 50 MG TABLET PO SCH (08:30)
[2021-06-11] MEDS: CARVEDILOL 12.5 MG TABLET PO SCH ×2 (08:31→17:13)
[2021-06-11] MEDS: DIVALPROEX SPRINKLE 125 MG CAP.SPRINK PO SCH ×3 (08:31→17:08)
[2021-06-11] MEDS: METFORMIN HCL 500 MG TABLET PO SCH ×2 (08:31→17:12)
[2021-06-11] MEDS: GLUCERNA SHAKE VANILLA 237 ML CAN PO SCH ×2 (08:32→17:00)
--- NOTE | 2021-06-11 13:52 | NUR ---
GPS: Nursing Notes: Destructive Behavior To Others: Patient is awake and responding to her name, forgetful at times, cooperative with nursing care, compliant with her medications, disoriented, impaired judgment, resistant with nursing care at times, ambulatory with fww, unable to formulate a viable plan for self care, needs prompting to participate in therapeutic groups, continue with treatment plan.
[2021-06-11 16:48] VITALS: BP 125/52
[2021-06-11 20:00] VITALS: BP 146/65
[2021-06-11] MEDS: ATORVASTATIN 10 MG TABLET PO SCH (20:33)
[2021-06-12 08:42] VITALS: BP 160/53
[2021-06-12] MEDS: LINAGLIPTIN 5 MG TABLET PO SCH (08:44)
[2021-06-12] MEDS: DIVALPROEX SPRINKLE 125 MG CAP.SPRINK PO SCH ×3 (08:44→18:02)
[2021-06-12] MEDS: LINZESS 290 MCG PO SCH (08:44)
[2021-06-12] MEDS: DOCUSATE SODIUM 100 MG CAPSULE PO SCH ×2 (08:45→18:01)
[2021-06-12] MEDS: LOSARTAN POTASSIUM 50 MG TABLET PO SCH (08:45)
[2021-06-12] MEDS: METFORMIN HCL 500 MG TABLET PO SCH ×2 (08:45→18:00)
[2021-06-12] MEDS: CARVEDILOL 12.5 MG TABLET PO SCH ×2 (08:46→18:01)
[2021-06-12] MEDS: OLANZAPINE 2.5 MG TABLET PO SCH ×3 (08:48→18:01)
[2021-06-12] MEDS: GLUCERNA SHAKE VANILLA 237 ML CAN PO SCH ×2 (08:49→18:02)
--- NOTE | 2021-06-12 13:46 | NUR ---
GPS: Nursing Notes: Destructive Behavior To Others: Patient is awake and responding to her name, disoriented, forgetful at times, but compliant with her medications, following staff directions, ambulatory with fww, cooperative with nursing care, denies SI/HI, unable to formulate a viable plan for self care, redirected and reoriented during shift, continue to monitor for safety, continue with treatment plan.
[2021-06-12 16:42] VITALS: BP 152/52
[2021-06-12 20:18] VITALS: BP 142/50
[2021-06-12] MEDS: ATORVASTATIN 10 MG TABLET PO SCH (20:25)
[2021-06-12] MEDS: TEMAZEPAM 7.5 MG CAPSULE PO PRN (20:25)
--- NOTE | 2021-06-13 04:07 | NUR ---
GPS NOTES: Patient in bed sitting upon initial interaction, A&0x1. patient is pleasant and re directable. Patient compliant with medications. Prn tamazepam given with effectiveness as patient slept most of the night w/ no complications or behavioral changes noted. closely monitoring done. safety strategies in place
[2021-06-13 07:35] VITALS: BP 124/48
[2021-06-13] MEDS: LINAGLIPTIN 5 MG TABLET PO SCH (09:23)
[2021-06-13] MEDS: OLANZAPINE 2.5 MG TABLET PO SCH ×3 (09:23→17:07)
[2021-06-13] MEDS: DOCUSATE SODIUM 100 MG CAPSULE PO SCH ×2 (09:23→17:07)
[2021-06-13] MEDS: METFORMIN HCL 500 MG TABLET PO SCH ×2 (09:23→17:07)
[2021-06-13] MEDS: DIVALPROEX SPRINKLE 125 MG CAP.SPRINK PO SCH ×3 (09:23→17:07)
[2021-06-13] MEDS: LINZESS 290 MCG PO SCH (09:24)
[2021-06-13] MEDS: CARVEDILOL 12.5 MG TABLET PO SCH ×2 (09:24→17:08)
[2021-06-13] MEDS: LOSARTAN POTASSIUM 50 MG TABLET PO SCH (09:25)
[2021-06-13] MEDS: GLUCERNA SHAKE VANILLA 237 ML CAN PO SCH ×2 (09:25→17:08)
--- NOTE | 2021-06-13 12:12 | NUR ---
GOLDIE Discharge Note: Pt will be discharged to [facility] [address], [address] via Ambulance transportation at 3PM ([phone]). GOLDIE spoke with admin coordinator, Kyara ([phone]) at the facility who states they are ready to accept the patient today. Pt is aware and agreeable with discharge plans. Pts daughter, Ngoc ([phone]) is aware and agreeable with the discharge plan. Pt is alert and oriented x0, is unable to plan for self-care at this time; however, is willing to accept care at SNF. Pt denies any suicidal or homicidal ideation. Pt will follow-up at the facility with Psychiatrist, Dr. Lin and Revenue Accountant, Dr. Krishna. Pt presents with calm mood and congruent affect. Pt will be in room 12A.
--- NOTE | 2021-06-13 12:14 | NUR ---
GOLDIE Discharge Note Update: Pt will be discharged to [facility] [address] [facility], [address] via Ambulance transportation at 3PM ([phone]). GOLDIE spoke with admin coordinator, Kyara ([phone]) at the facility who states they are ready to accept the patient today. Pt is aware and agreeable with discharge plans. Pts daughter, Ngoc ([phone]) is aware and agreeable with the discharge plan. Pt is alert and oriented x0, is unable to plan for self-care at this time; however, is willing to accept care at SNF. Pt denies any suicidal or homicidal ideation. Pt will follow-up at the facility with Psychiatrist, Dr. Lin and Torpedo Specialist, Dr. Krishna. Pt presents with calm mood and congruent affect. Pt will be in room 12A. PHARMACY: [facility] ([phone]) [address] [place] [address].
[2021-06-13] MEDS: BISACODYL 10 MG SUPP.RECT RC PRN (13:58)
[2021-06-13 16:48] VITALS: BP 125/54
[2021-06-13 17:08] VITALS: BP 125/54
--- NOTE | 2021-06-13 17:45 | NUR ---
GPS: Nursing Notes: Discharge Notes: Patient is awake and responding to her name, cooperative with nursing care, compliant with her medications, A/Ox1-2, forgetful at times, but following staff directions, denies SI/HI, denies AH/VH, denies pain or discomfort, denies SOB, discharge to [facility], SNF at [address] [place] [address] , report given to Edith - RN trains dispatcher supervisor, her daughter took all of her belongings yesterday and signed the belongings form. Patient will follow up with Dr. Lin (psychiatrist) and Dr. Krishna (powerbuilder) for aftercare at the facility, transported to facility via ambulance. Patient's daughter - Ngoc informed of discharge by social security assessor.
== END 2021-06-13 17:45 | DRG 885 ==
LOC: ER 21:02 → GPS 05-27 02:44
PROVIDERS: ADMIT Psychiatry & Neurology Psychiatry; ATTEND Registered Nurse
DX: F29 Unspecified psychosis not due to a substance or known physiological condition (principal); F03.91 Unspecified dementia, unspecified severity, with behavioral disturbance; N39.0 Urinary tract infection, site not specified; F25.9 Schizoaffective disorder, unspecified; E86.0 Dehydration; D64.9 Anemia, unspecified; E78.5 Hyperlipidemia, unspecified; F41.9 Anxiety disorder, unspecified; I10 Essential (primary) hypertension; B96.89 Other specified bacterial agents as the cause of diseases classified elsewhere; Z79.84 Long term (current) use of oral hypoglycemic drugs; E11.9 Type 2 diabetes mellitus without complications; Z79.899 Other long term (current) drug therapy; Z20.822 Contact with and (suspected) exposure to COVID-19
CPT/HCPCS: 36415; 80164; 83735; 84443; 85025; 93005; 97161; J2358; J7040